=== PATIENT | female | born 1975 | race Caucasian/White ===

== ENCOUNTER → 2020-09-12 | Day surgery (SDC) | payer BC ==
--- NOTE | 2020-09-18 12:23 | RAD REPORT ---
EXAM DESCRIPTION: US - Guided FNA Non Breast - 09/18/2020 10:33 am CLINICAL HISTORY: D44.0 COMPARISON: Thyroid Para Parotid Gland dated 03/15/2020 TECHNIQUE: Patient presents for ultrasound-guided fine-needle aspiration of a previously detailed do minant 4 centimeter heterogeneous solid nodule. Patient had no contraindicated allergy or medication history. By patient report, patient underwent fine-needle aspiration approximately 1 year earlier at an outside facility. Findings were apparently nondiagnostic or inconclusive. The procedure, risks and alternatives were discussed with the patient in detail. After answering all questions, both oral and written consent were obtained. Preliminary imaging identified the solid nodule in the right lobe of the thyroid gland. Anterior righ t neck was prepped and draped in the usual sterile fashion. From an anterolateral approach the skin a nd deeper tissues were anesthetized with 1% lidocaine. Under direct sonographic visualization a 25 gauge needle was advanced into the thyroid nodule. Multip le to and fro excursions of the needle tip performed. The procedure was then repeated with for additi onal 25 gauge needles placed in various positioning within the nodule. All performed under direct son ographic visualization. All obtained material was given to pathology for cytology/ histology assessment. Post FNA imaging tyson wed no hematoma in the soft tissues or within the nodule. Postprocedure care and precaution instructi ons were given to the patient. IMPRESSION: Ultrasound-guided fine-needle aspiration performed of a dominant 4 centimeter right thyr oid nodule. All material obtained was given to pathology for cytology/ histology assessment. There were no immediate complications. Postprocedure care and precaution instructions were given to t he patient.
== END ==
LOC: FNA 10:30
PROVIDERS: ATTEND Otolaryngology
PROC: 0GJK3ZZ Inspection of Thyroid Gland, Percutaneous Approach (ICD-10-PCS; principal; 2020-09-12)
DX: D44.0 Neoplasm of uncertain behavior of thyroid gland (principal)
CPT/HCPCS: 88162

== ENCOUNTER 2020-10-20 07:04 | Day surgery (SDC) | payer BC ==
--- NOTE | 2020-10-19 10:37 | EKG ---
Test Date: 2020-10-17 Test Time: 15:10:27 [employer] Tech: IAN MEASUREMENT RESULTS: Intervals: Rate: 60 SD: 148 QRSD: 86 QT: 422 QTc: 422 [place]: P: 29 SD: 148 QRS: -3 T: 12 INTERPRETIVE STATEMENTS: Normal sinus rhythm Cannot rule out Anterior infarct, age undetermined Abnormal ECG No previous ECG available for comparison Electronically Signed On 10-19-20 10:32:22 CDT by Guille Ernst
[2020-10-20] MEDS ORDERED: Ringers Lactate 1,000 ML IV ONE (07:38)
[2020-10-20] MEDS ORDERED: CEFAZOLIN/SWI 1gm 1 GM/10 ML SYR ONE (07:38)
[2020-10-20 08:04] LABS: Specific Gravity 1.025 (1.005-1.030)
[2020-10-20] MEDS ORDERED: propofoL 200 MG/20 ML VIAL IV ONE (08:33)
[2020-10-20] MEDS ORDERED: ROCURONIUM 50 MG/5 ML VIAL IV ONE (08:33)
[2020-10-20] MEDS ORDERED: dexAMETHasone 10 MG/ML VIAL ONE (08:33)
[2020-10-20] MEDS ORDERED: LIDOCAINE 1% W/EPI 1:100,000 MDV 20 ML VIAL ONE (08:34)
[2020-10-20] MEDS ORDERED: LIDOCAINE 2% MPF 5 ML VIAL ONE (08:34)
[2020-10-20] MEDS ORDERED: MIDAZOLAM HCL 2 MG/2 ML INJ ONE (08:34)
[2020-10-20] MEDS ORDERED: FENTANYL CITR 250 MCG/5 ML ONE (08:34)
[2020-10-20] MEDS ORDERED: ONDANSETRON 4 MG/2 ML VIAL ONE (08:34)
[2020-10-20] MEDS ORDERED: EPHEDRINE SULF 50 MG/ML VIAL ONE (09:19)
[2020-10-20] MEDS ORDERED: KETOROLAC 30 MG/ML INJ ONE (09:55)
--- NOTE | 2020-10-20 09:55 | P.BOP ---
Preoperative diagnosis: right thyroid neoplasm Postoperative diagnosis: same Primary procedure: right jennifer thyroidectomy Behavior Management Specialist: CHI DIAZ Estimated blood loss: 15ml Specimen: right thyroid Findings: large, soft thyroid nodule Anesthesia: General Complications: None Drain(s): ETHAN drain Fluids & blood products: crystalloid 850ml Transferred to: Recovery Room Condition: Good
[2020-10-20] MEDS ORDERED: Mastisol Adhesive Liq ONE (10:02)
[2020-10-20] MEDS ORDERED: TRAMADOL HCL 50 MG TAB PO ONE (11:14)
[2020-10-20] MEDS ORDERED: TRAMADOL HCL 50 MG TAB ONE (11:33)
[2020-10-20 12:11] VITALS: BP 115/70; TEMP 97; O2SAT 97
--- NOTE | 2020-10-20 20:40 | OP ---
Date of Procedure: 10/20/2020 Surgeon: Eugenie Ayala MD Retail Interior Designer: Shea Cordoba. Preoperative Diagnosis: Neoplasm of uncertain behavior, right thyroid. Postoperative Diagnosis: Neoplasm of uncertain behavior, right thyroid. Procedure: Right Hemithyroidectomy. Indication For Procedure: Yoko is a 45-year-old with findings of a 4.6 cm right thyroid nodule with 2 prior fine-needle aspiration biopsies that were nondiagnostic due to cellular paucity. The risks, benefits, and alternatives to partial thyroidectomy versus repeat biopsy were discussed and she elected for excision. Procedure In Detail: The patient was brought to the operating room. She was placed under general anesthesia via oral endotracheal tube. A shoulder roll was placed and the neck was extended. The planned incision site was injected with 3 mL of 1% lidocaine with epinephrine. The neck was prepped and draped in a standard fashion using Betadine. A low collar incision of approximately 3.5 cm was made through the skin and subcutaneous tissue. The Bovie electrocautery was used to divide the subcutaneous tissue until the platysma muscle was identified and divided. Superior and inferior platysmal flaps were then elevated using the Bovie electrocautery. The strap muscles were identified in the midline and divided. The right strap muscles were bluntly elevated off the thyroid capsule. The muscles elevated easily with no abnormal appearing adhesions. The middle thyroid vein was identified and divided, and blunt dissection was carried around the inferior pole taking care to stay on the thyroid capsule. The inferior pole was then mobilized via ligation with the LigaSure of the inferior thyroid vein. Tissue suspicious for inferior parathyroid was carefully elevated off the thyroid capsule and left in situ. Attention was then turned more superiorly. The superior pole of the thyroid was bluntly dissected along its lateral border. Minor dissectors were used to carefully dissect along the medial aspect of the superior pole taking care to carefully dissect from the underlying musculature. The superior tissue attachments including blood vessels were divided with the LigaSure. The thyroid gland was elevated inferiorly and medially, and dissection was carried out around the deep aspect of the thyroid lobe. Once the thyroid was well mobilized, attention was returned to the isthmus. The isthmus was identified and divided using the LigaSure. The isthmus and medial aspect of the thyroid were then carefully elevated from the lateral right tracheal wall. The specimen was then elevated out of the neck and final tissue attachments were carefully divided using the LigaSure. The surgical cavity was packed with Ray- Georgina's and the surgical specimen was examined. There were the specimen including the nodule felt soft to palpation and there were no visible parathyroid glands on the surface of the specimen. The specimen was marked with a suture at the superior pole and sent to pathology for permanent section only. Attention was then returned to the surgical bed where the packing was removed. Careful inspection revealed no evidence of bleeding. The surgical cavity was filled with sterile saline and a Valsalva was performed. There was no evidence of any bleeding or air leaks through the trachea. The saline was carefully suctioned and the surgical bed was thoroughly irrigated with several additional aliquots of sterile saline. After final inspection revealed no additional bleeding, a 10-Brazilian round ETHAN drain was placed through the right skin flap and trimmed to appropriate length and placed within the right thyroid bed. The strap muscles were closed with a single Vicryl suture to approximate the muscles across the tracheal wall. The deep skin and platysma layers were closed in interrupted fashion using 4-0 Vicryl. The skin flaps were then closed in a subcuticular fashion using 4-0 Monocryl. The skin was cleaned and dried, and a dressing of Mastisol and Steri-Strips were applied to the incision. The remaining skin was cleaned and dried. The ETHAN drain was attached to the suction bulb, which appeared to hold well. The patient was then returned to care of Anesthesia for awakening and extubation in the operating room, which proceeded without difficulty. Estimated Blood Loss: 15 mL. Drains: 10-Brazilian round ETHAN to the right neck. Complications: None. Disposition: The patient will be discharged home later today in the care of her family and follow up with Dr. Ayala in 3 days for removal of the drain. A discharge prescription of tramadol with a 5 day supply is sent to the patient's pharmacy of record. DAYSI/DAKOTA Voice ID: [id number] Report ID: [id number] MARLY
== END 2020-10-20 12:00 | disposition home or self-care (01) ==
LOC: OR 07:04
PROVIDERS: ATTEND Otolaryngology
PROC: 0GTH0ZZ Resection of Right Thyroid Gland Lobe, Open Approach (ICD-10-PCS; principal; 2020-10-20 08:30)
DX: D34 Benign neoplasm of thyroid gland (principal)
CPT/HCPCS: 93005; 81025; 88307; 60220; J2704; J2250; J3010; J1100; J0690; J7120; J2405